=== PATIENT | female | born 1965 | race Two or more races ===

== ENCOUNTER 2018-04-04 08:32 | Outpatient (CLI) | payer OTHER | END 2018-04-04 12:02 | disposition home or self-care (01) | LOC: SONOGRAMA 08:32 | DX: E04.2 Nontoxic multinodular goiter (principal) ==

== ENCOUNTER 2019-07-13 09:38 | Outpatient (CLI) | payer OTHER | END 2019-07-13 11:29 | disposition home or self-care (01) | LOC: SONOGRAMA 09:38 | DX: E04.2 Nontoxic multinodular goiter (principal); E55.9 Vitamin D deficiency, unspecified; E56.8 Deficiency of other vitamins ==